=== PATIENT | male | born 1930 | race Caucasian/White ===

== ENCOUNTER 2016-11-24 10:41 | Emergency (ER) | payer OTHER ==
[~2016-11-24] VITALS: Ht 172.7 cm; Wt 65.8 kg
[2016-11-24 10:45] VITALS: BP 193/90; PULSE 60; RESP 18; TEMP 98.5; O2SAT 98
--- NOTE | 2016-11-24 10:45 | NUR ---
Arrived as walk in from home with compliant of back pain x 1 week, with associated chest pain. Both the chest pain and back pain are poorly described. Placed in room 8 . Placed on cardiac/vascular sonographer, blood pressure machine and pulse oximeter. To gown for exam. Side rails up. Report given to Cole GARCIA.
--- NOTE | 2016-11-24 10:50 | NUR ---
# 20 gauge angiocath placed to RAC. Use of asceptic technique. Opsite placed over site. Blood return noted. Blood for lab drawn from site. Flushed with 10 cc of normal saline. No evidence of infiltration noted. Patient tolerated well.
--- NOTE | 2016-11-24 10:50 | NUR ---
Pt report received from RADHA Rivera. Pt c/o back pain that radiates to his chest x 1 week, more severe over the past two days. No SOB, denies N/V or headache. VSS.
--- NOTE | 2016-11-24 11:00 | NUR ---
Dr. Pond at bedside to assess pt.
[2016-11-24] MEDS ORDERED: ONDANSETRON HCL 4 MG/2 ML VIAL IVP ONE (11:15)
[2016-11-24] MEDS ORDERED: MORPHINE 4 MG/ML INJ. SYRINGE IVP ONE (11:15)
[2016-11-24] MEDS ORDERED: MORPHINE 2 MG/ML INJ. SYRINGE ONE (11:20)
[2016-11-24 11:27] LABS: BASOPHILS # (AUTO) 0.1 K/uL (0.0-0.2); BASOPHILS % (AUTO) 0.6 % (0.0-2.0); EOSINOPHILS # (AUTO) 0.3 K/uL (0.0-0.4); EOSINOPHILS % (AUTO) 2.4 % (0.0-4.0); HEMATOCRIT 36.3 % (36-54); HEMOGLOBIN 11.9 g/dL (14.0-18.0); LYMPHOCYTES # (AUTO) 1.6 K/uL (1.0-5.5); LYMPHOCYTES % (AUTO) 11.8 % (20.5-51.5); MEAN CORPUSCULAR HEMOGLOBIN 26 pg (27-31); MEAN CORPUSCULAR HGB CONC 33 % (32-36); MEAN CORPUSCULAR VOLUME 80 fL (79.0-98.0); MONOCYTES # (AUTO) 1.3 K/uL (0.0-1.0); MONOCYTES % (AUTO) 9.7 % (1.7-9.3); NEUTROPHILS # (AUTO) 10.1 K/uL (1.8-7.7); NEUTROPHILS % (AUTO) 75.5 % (40.0-70.0); PLATELET COUNT (AUTO) 349 K/uL (130-430); RED BLOOD CELL COUNT(AUTO) 4.51 MIL/uL (4.2-6.2); RED CELL DISTRIBUTION WIDTH 14.7 % (9.0-15.0); WHITE BLOOD COUNT (AUTO) 13.4 K/uL (4.8-10.8)
[2016-11-24 11:39] LABS: ANION GAP 7 (5-15); CALCIUM 8.8 mg/dL (8.4-11.0); CHLORIDE 104 mmol/L (98-107); CREATININE 1.16 mg/dL (0.55-1.30); GLUCOSE 118 mg/dL (70-99); POTASSIUM 4.7 mmol/L (3.5-5.1); SODIUM SERUM 138 mmol/L (136-145); UREA NITROGEN, BLOOD 28 mg/dL (8-21)
[2016-11-24 11:43] LABS: ALBUMIN 3.3 g/dL (3.4-4.8); ASPARTATE AMINOTRANSFERASE 23 U/L (10-37); CHOLESTEROL 92 mg/dL (<200); HDL CHOLESTEROL 39 mg/dL (>45); LDL CHOLESTEROL 42 mg/dL (<100); TOTAL BILIRUBIN 0.6 mg/dL (0.0-1.0); TOTAL PROTEIN, SERUM 7.4 g/dL (6.4-8.3); TRIGLYCERIDES 108 mg/dL (30-150)
[2016-11-24 11:56] LABS: ALANINE AMINOTRANSFERASE 7 U/L (12-78)
--- NOTE | 2016-11-24 12:00 | NUR ---
Pt AAOx4, talking with family members. Pt denies c/o pain or discomfort at this time.
[2016-11-24 12:06] LABS: BILIRUBIN,URINE NEGATIVE (NEGATIVE); BLOOD, URINE NEGATIVE (NEGATIVE); CLARITY/URINE SL HAZY (CLEAR); COLOR,URINE YELLOW (YELLOW); GLUCOSE,URINE NEGATIVE (NEGATIVE); KETONES,URINE NEGATIVE (NEGATIVE); LEUKOCYTE ESTERASE ,URINE NEGATIVE (NEGATIVE); NITRITE, URINE NEGATIVE (NEGATIVE); PH,URINE 7.5 (5.0-8.0); PROTEIN URINE NEGATIVE (NEGATIVE); UROBILINOGEN,URINE 0.2 (0.2-1.0)
[2016-11-24] MEDS ORDERED: IOHEXOL 350 mgI/mL, 150 ML INFUS..BTL IV ONE (12:50)
[2016-11-24] MEDS ORDERED: DOXYCYCLINE HYCLATE 100 MG CAPSULE PO ONE (14:00)
--- NOTE | 2016-11-24 14:00 | NUR ---
Pt resting quietly, pt denies c/o pain or discomfort and no needs verbalized at this time.
[2016-11-24 16:00] VITALS: BP 136/71; PULSE 76; RESP 20; TEMP 98.1; O2SAT 97
--- NOTE | 2016-11-24 16:00 | NUR ---
Patient given written and verbal discharge instructions and verbalizes understanding. ER MD discussed with patient the results and treatment provided. Patient in stable condition. ID arm band removed. IV catheter removed intact and dressing applied, no active bleeding. Rx of Doxycycline given. Patient educated on pain management and to follow up with PMD. Pain Scale 0/10. Opportunity for questions provided and answered. Pt discharged to home with close follow up. Pt.'s daughter is the [employer] administrator at the assisted living in which the pt resides. Pt also has an appointment with his PMD tomorrow.
== END 2016-11-24 16:00 | disposition home or self-care (01) ==
LOC: SED 10:41
DX: M54.6 Pain in thoracic spine (principal); J18.1 Lobar pneumonia, unspecified organism; I10 Essential (primary) hypertension
CPT/HCPCS: 36415; 71010; 71275; 80053; 80061; 81003; 83605; 83880; 84484; 85025; 85379; 87040; 93005; 96374; 96375; 99285; J2270; J2405; Q9967; J7030

== ENCOUNTER 2017-01-01 11:39 | Inpatient (IN) | payer OTHER ==
[~2017-01-01] VITALS: Ht 165.1 cm; Wt 63.5 kg
[2017-01-01 11:39] VITALS: BP 133/57; PULSE 66; RESP 16; TEMP 97.9; O2SAT 99
--- NOTE | 2017-01-01 11:39 | NUR ---
Patient to ER bed 3 to gown for evaluation. Side rails up. Report given to anant steward.
--- NOTE | 2017-01-01 11:42 | NUR ---
ER at bedside examining patient.
--- NOTE | 2017-01-01 11:47 | NUR ---
# 20 gauge angiocath placed to R AC. Use of asceptic technique. Opsite placed over site. Blood return noted. Blood for lab drawn from site. Flushed with 10 cc of normal saline. No evidence of infiltration noted. Patient tolerated well.
[2017-01-01 11:58] LABS: BASOPHILS % (AUTO) 0.2 % (0.0-2.0); EOSINOPHILS # (AUTO) 0.4 K/uL (0.0-0.4); EOSINOPHILS % (AUTO) 2.5 % (0.0-4.0); HEMATOCRIT 26.5 % (36-54); HEMOGLOBIN 8.2 g/dL (14.0-18.0); LYMPHOCYTES # (AUTO) 1.6 K/uL (1.0-5.5); LYMPHOCYTES % (AUTO) 10.6 % (20.5-51.5); MEAN CORPUSCULAR HEMOGLOBIN 25 pg (27-31); MEAN CORPUSCULAR HGB CONC 31 % (32-36); MEAN CORPUSCULAR VOLUME 81 fL (79.0-98.0); MONOCYTES # (AUTO) 1.4 K/uL (0.0-1.0); MONOCYTES % (AUTO) 8.7 % (1.7-9.3); NEUTROPHILS # (AUTO) 12.1 K/uL (1.8-7.7); RED BLOOD CELL COUNT(AUTO) 3.29 MIL/uL (4.2-6.2); RED CELL DISTRIBUTION WIDTH 15.3 % (9.0-15.0); WHITE BLOOD COUNT (AUTO) 15.5 K/uL (4.8-10.8)
[2017-01-01 12:17] LABS: ANION GAP 9 (5-15); CALCIUM 8.5 mg/dL (8.4-11.0); CHLORIDE 99 mmol/L (98-107); GLUCOSE 109 mg/dL (70-99); POTASSIUM 4.3 mmol/L (3.5-5.1); SODIUM SERUM 133 mmol/L (136-145); UREA NITROGEN, BLOOD 33 mg/dL (8-21)
[2017-01-01 12:21] LABS: ALANINE AMINOTRANSFERASE 20 U/L (12-78); ALBUMIN 2.8 g/dL (3.4-4.8); ASPARTATE AMINOTRANSFERASE 35 U/L (10-37); LIPASE 153 U/L (73-393); TOTAL BILIRUBIN 0.5 mg/dL (0.0-1.0); TOTAL PROTEIN, SERUM 6.8 g/dL (6.4-8.3)
[2017-01-01 12:33] LABS: PLATELET COUNT (AUTO) 542 K/uL (130-430)
--- NOTE | 2017-01-01 12:43 | NUR ---
PATIENT EXPERIENCING SOB, LUNG SOUNDS ARE CLEAR UPON AUSCULTATION. SUPPLEMETAL O2 VIA N/C TOLERATING WELL.
[2017-01-01] MEDS ORDERED: NACL 0.9% 1,000 ML IV ONE (12:45)
[2017-01-01] MEDS ORDERED: BISA5TAB10 PO (13:06)
[2017-01-01] MEDS ORDERED: CARB-62 PO (13:06)
[2017-01-01] MEDS ORDERED: CHOL100028 PO (13:06)
[2017-01-01] MEDS ORDERED: CLOP75TA2 PO (13:06)
[2017-01-01] MEDS ORDERED: IPRA4AER INH (13:06)
[2017-01-01] MEDS ORDERED: LIP40 PO (13:06)
[2017-01-01] MEDS ORDERED: POLY17PO4 PO (13:06)
[2017-01-01] MEDS ORDERED: PROC25SU RC (13:06)
[2017-01-01] MEDS ORDERED: PSYL3.4P6 PO (13:06)
[2017-01-01] MEDS ORDERED: SENN-67 PO (13:06)
[2017-01-01] MEDS ORDERED: fluticasone nasal NS (13:06)
[2017-01-01] MEDS ORDERED: OMEG500C3 PO (13:06)
[2017-01-01] MEDS ORDERED: [UNRECOGNIZED DRUG - CODE] PO (13:06)
[2017-01-01] MEDS ORDERED: TYLR650 RC (13:06)
[2017-01-01] MEDS ORDERED: HYOS0.1275 PO (13:06)
[2017-01-01] MEDS ORDERED: MORP10SO PO (13:06)
[2017-01-01] MEDS ORDERED: LEVO75TA7 PO (13:06)
[2017-01-01] MEDS ORDERED: ATEN-41 PO (13:06)
[2017-01-01] MEDS ORDERED: ISOS30TA6 PO (13:06)
[2017-01-01] MEDS ORDERED: MAG-86 PO (13:06)
[2017-01-01] MEDS ORDERED: HYDR-1189 PO (13:06)
[2017-01-01] MEDS ORDERED: BISA10SU77 RC (13:06)
[2017-01-01] MEDS ORDERED: ASPI-1063 PO (13:06)
[2017-01-01] MEDS ORDERED: TEMA15CA51 PO (13:06)
[2017-01-01] MEDS ORDERED: PRO40 PO (13:06)
[2017-01-01] MEDS ORDERED: NITSL SL (13:06)
[2017-01-01] MEDS ORDERED: LORA1TAB PO (13:06)
[2017-01-01] MEDS ORDERED: MINTOX PO (13:06)
[2017-01-01] MEDS ORDERED: ALLO100T PO (13:06)
[2017-01-01] MEDS ORDERED: IBUP-1479 PO (13:06)
[2017-01-01] MEDS ORDERED: GLUC-160 PO (13:06)
--- NOTE | 2017-01-01 13:06 | NUR ---
Medication reconciliation completed with information provided by juli. Any prior medication reconciliation on file was reviewed and corrected.
--- NOTE | 2017-01-01 13:21 | NUR ---
ADMISSION NOTE Received patient from ER via gurney. Patient admitted with diagnosis of GI Bleed. Patient is awake, alert, oriented X 3. Patient oriented to hospital room, call light, toileting, pain management and safety-teach back done. Patient informed that Fabricio will be his nurse and that their room number is 130 A. Personal belongings checked and Belongings List documented. Call light within reach.
--- NOTE | 2017-01-01 13:23 | NUR ---
Patient will be admitted to care of ASHWINI. Admitted to unit. Will go to room . Belongings list completed. Summary report printed. Report given to .
[2017-01-01 13:24] VITALS: BP 148/71; PULSE 70; RESP 17; TEMP 99.1; O2SAT 100
[2017-01-01] MEDS ORDERED: TEMAZEPAM 15 MG CAPSULE PO PRN (14:00)
[2017-01-01] MEDS ORDERED: ACETAMINOPHEN 325 MG TABLET PO PRN (14:00)
[2017-01-01] MEDS ORDERED: ACETAMINOPHEN 650 MG SUPP.RECT RC PRN (14:00)
[2017-01-01] MEDS ORDERED: NITROGLYCERIN 0.4 MG TAB.SUBL SL PRN (14:00)
[2017-01-01] MEDS ORDERED: BISACODYL 10 MG/SUPPOSITORY RC PRN (14:00)
[2017-01-01] MEDS ORDERED: PROCHLORPERAZINE MALEATE 25 MG/SUPP.RECT EA RC PRN (14:00)
[2017-01-01] MEDS ORDERED: LORazepam 1 MG TABLET PO PRN (14:00)
[2017-01-01] MEDS ORDERED: HYOSCYAMINE SULFATE 0.125 MG TABLET PO PRN (14:00)
--- NOTE | 2017-01-01 14:08 | NUR ---
CONSULT GI GI BLEED DR DIAZ [phone] S/W [facility] OFFICE @ 0863
[2017-01-01 14:14] LABS: HEMATOCRIT 24.7 % (36-54); HEMOGLOBIN 7.9 g/dL (14.0-18.0)
--- NOTE | 2017-01-01 15:09 | NUR ---
RN ROUNDS PATIENT RESTING IN BED FAMILY AT THE BEDSIDE, PATIENT ASKING FOR ASSISTANCE WITH URINAL, ASSISTED THE PATIENT TO STAND AND USE THE URINAL, PATIENT IS UNSTEADY WITHOUT ASSISTANCE, RETURNED PATIENT TO BED, GAVE NEW SOCKS AND WARM BLANKET, REINFORCED IV SITE DRESSING AT THIS TIME, IV FLUIDS INFUSING WELL, IV SITE IS PATENT WITH NO SIGNS OF INFILTRATION AT THIS TIME, BED IN LOWEST POSITION, THREE SIDE RAILS UP, BED ALARM ON, FALL PRECAUTIONS IN PLACE, CALL LIGHT PLACED NEXT TO THE PATIENT'S HAND.
[2017-01-01 16:00] VITALS: BP 125/54; PULSE 69; RESP 20; TEMP 98.1; O2SAT 99
--- NOTE | 2017-01-01 17:35 | NUR ---
RN ROUND patient resting in bed, family members at bedside, instructed patient to use call salcido if assistance is needed, patient verbalized understanding, bed in lowest position, two side rails up, bed alarm on, fall precautions in place, will continue to monitor
[2017-01-01] MEDS: CARBIDOPA/LEVODOPA 25/250 MG TABLET PO SCH ×2 (18:02→21:38)
[2017-01-01] MEDS: MORPHINE 2 MG/ML INJ. SYRINGE IVP PRN (18:03)
--- NOTE | 2017-01-01 18:47 | NUR ---
Closing Note Patient is in stable condition,family members at bedside, all needs met, will endorse report to NOC shift nurse, bed in lowest position, two side rails up, fall precautions in place.
--- NOTE | 2017-01-01 19:30 | NUR ---
PM ASSESSMENT PT. A/OX4, VITAL SIGNS STABLE, NO DISTRESS NOTED, DENIES PAIN, FAMILY AT BEDSIDE UPDATED WITH PLAN OF CARE, ENCOURAGED PT. TO USE CALL LIGHT FOR ASSISTANCE, CALL LIGHT WITHIN REACH, WILL CONTINUE TO MONITOR.
--- NOTE | 2017-01-01 19:40 | NUR ---
pm assessment: pt. awake, alert, answers all questions appropriately. speech clear. denies pain. assisted up to bathroom to void and back to bed. no sob noted. family present at bedside. call light within reach. bed in low position.
[2017-01-01 20:25] VITALS: BP 122/56; PULSE 64; RESP 16; TEMP 98.3; O2SAT 100
[2017-01-01 21:09] LABS: HEMATOCRIT 23.6 % (36-54); HEMOGLOBIN 7.6 g/dL (14.0-18.0)
[2017-01-01] MEDS: PANTOPRAZOLE SODIUM 40 MG/VIAL (PROTONIX) IVP SCH (21:35)
[2017-01-01] MEDS: HYDROcodone/ACETAMIN 5-325 MG TAB (NORCO/ VICODIN) PO SCH (21:38)
[2017-01-01] MEDS: ATENOLOL 25 MG TABLET(TENORMIN) PO SCH (21:41)
[2017-01-01] MEDS: BISACODYL 5 MG TABLET.DR (DULCOLAX) PO SCH (21:43)
--- NOTE | 2017-01-01 22:01 | NUR ---
CONSULT: CONSULT CALLED FOR DR. DIAZ I SPOKE WITH ILEANA GARCIA CUSTOMER SUCCESS REPRESENTATIVE CLAUDIO REASON FOR CONSULT: GI BLEED NUMBER I CALLED [phone]
--- NOTE | 2017-01-01 22:22 | NUR ---
DR. DIANA ORTIZ CALLED, MADE AWARE OF CURRENT H/H 7.6/23.6, RECEIVED ORDER TO KEEP PT. NPO, NO FURTHER ORDERS AT THIS TIME.
[2017-01-01 23:23] LABS: IRON (SERUM) 18 mcg/dL (59-158); TOTAL IRON BIND. CAPACITY 195 ug/dL (250-450)
--- NOTE | 2017-01-02 | NUR ---
RN ROUNDS PT. RESTING QUIETLY, VITAL SIGNS STABLE, NO DISTRESS NOTED, DENIES PAIN, CALL LIGHT WITHIN REACH, WILL CONTINUE TO MONITOR.
[2017-01-02 01:28] VITALS: BP 93/41; PULSE 61; RESP 18; TEMP 98.2; O2SAT 99
--- NOTE | 2017-01-02 02:00 | NUR ---
RN ROUNDS PT. RESTING QUIETLY, VITAL SIGNS STABLE, NO DISTRESS NOTED, DENIES PAIN, CALL LIGHT WITHIN REACH, WILL CONTINUE TO MONITOR.
[2017-01-02 02:54] LABS: HEMATOCRIT 22.3 % (36-54)
--- NOTE | 2017-01-02 03:15 | NUR ---
SHORT OF BREATH PT. C/O SHORTNESS OF BREATH, O2 SAT. 78% ON ROOM AIR, PT. PLACED ON O2 5L, ENCOURAGED DEEP BREATHING, O2 SAT. IS NOW 99%, VITAL SIGNS STABLE, PT. SINUS RHYTHM WITH HEART RATE 62, WILL CONTINUE TO MONITOR.
[2017-01-02 04:56] VITALS: BP 123/51; PULSE 67; RESP 16; TEMP 98; O2SAT 100
[2017-01-02] MEDS: LEVOTHYROXINE SODIUM 0.075 MG TABLET PO SCH (06:00)
--- NOTE | 2017-01-02 06:40 | NUR ---
Closing note: Patient more restful. HOB elevated. Last vs 147/69, hr 63/ sat 97% on 5L/NC. Patient kept NPO. CBC and H&H drawn this AM. Call light in reach. Bed in low position. No distress noted.
[2017-01-02 06:41] LABS: BASOPHILS % (AUTO) 0.1 % (0.0-2.0); EOSINOPHILS # (AUTO) 0.3 K/uL (0.0-0.4); EOSINOPHILS % (AUTO) 2.2 % (0.0-4.0); HEMATOCRIT 25.2 % (36-54); HEMOGLOBIN 7.8 g/dL (14.0-18.0); LYMPHOCYTES # (AUTO) 1.2 K/uL (1.0-5.5); LYMPHOCYTES % (AUTO) 9.4 % (20.5-51.5); MEAN CORPUSCULAR HEMOGLOBIN 25 pg (27-31); MEAN CORPUSCULAR HGB CONC 31 % (32-36); MEAN CORPUSCULAR VOLUME 80 fL (79.0-98.0); MONOCYTES # (AUTO) 1.4 K/uL (0.0-1.0); MONOCYTES % (AUTO) 10.9 % (1.7-9.3); NEUTROPHILS # (AUTO) 10.2 K/uL (1.8-7.7); NEUTROPHILS % (AUTO) 77.4 % (40.0-70.0); PLATELET COUNT (AUTO) 537 K/uL (130-430); RED BLOOD CELL COUNT(AUTO) 3.17 MIL/uL (4.2-6.2); RED CELL DISTRIBUTION WIDTH 15.3 % (9.0-15.0); WHITE BLOOD COUNT (AUTO) 13.1 K/uL (4.8-10.8)
--- NOTE | 2017-01-02 07:30 | NUR ---
AM Rounds: Received pt sitting semi-fowlers in bed. No acute signs of distress noted at this time. Pt breathing even and unlabored on oxygen. No SOB noted at this time. Pt denies chest pain at this time. Pt is able to make needs known and verbalizes understanding of need to call for assist prior to ambulating. Call light in reach. Continue to monitor.
[2017-01-02 08:38] VITALS: BP 148/57; PULSE 67; RESP 16; TEMP 96.8; O2SAT 100
[2017-01-02] MEDS: HYDROcodone/ACETAMIN 5-325 MG TAB (NORCO/ VICODIN) PO SCH ×2 (09:00→21:00)
[2017-01-02] MEDS ORDERED: PANTOPRAZOLE SODIUM 40 MG TAB PO SCH (09:00)
[2017-01-02] MEDS: CARBIDOPA/LEVODOPA 25/250 MG TABLET PO SCH ×4 (09:08→21:02)
[2017-01-02] MEDS: CHOLECALCIFEROL (VITAMIN D3) 2,000 UNIT TABLET PO SCH (09:08)
[2017-01-02] MEDS: BISACODYL 5 MG TABLET.DR (DULCOLAX) PO SCH ×2 (09:08→21:01)
[2017-01-02] MEDS: ATORVASTATIN 20 MG TABLET PO SCH (09:08)
[2017-01-02] MEDS: POLYETHYLENE GLYCOL 3350, 17 GM/ POWD.PACK PO SCH (09:09)
[2017-01-02] MEDS: ISOSORBIDE MONONITRATE 30 MG TAB.ER.24H PO SCH (09:09)
[2017-01-02] MEDS: PANTOPRAZOLE SODIUM 40 MG/VIAL (PROTONIX) IVP SCH ×2 (09:09→21:03)
--- NOTE | 2017-01-02 09:46 | NUR ---
RN Rounds: AM meds given per MD order. No acute signs of distress noted. Pt tolerates well. Dr. Borja here new orders noted. Call light in reach. Continue to monitor.
[2017-01-02 10:08] LABS: ANION GAP 5 (5-15); CHLORIDE 105 mmol/L (98-107); CREATININE 1.36 mg/dL (0.55-1.30); GLUCOSE 84 mg/dL (70-99); POTASSIUM 4.3 mmol/L (3.5-5.1); SODIUM SERUM 136 mmol/L (136-145); UREA NITROGEN, BLOOD 30 mg/dL (8-21)
[2017-01-02 10:23] LABS: ALANINE AMINOTRANSFERASE 13 U/L (12-78); ALBUMIN 2.4 g/dL (3.4-4.8); ASPARTATE AMINOTRANSFERASE 36 U/L (10-37); BILIRUBIN,DIRECT 0.1 mg/dL (0.0-0.3); TOTAL BILIRUBIN 0.5 mg/dL (0.0-1.0); TOTAL PROTEIN, SERUM 5.9 g/dL (6.4-8.3)
--- NOTE | 2017-01-02 11:14 | NUR ---
Rounds: Pt sitting semi-fowlers in bed. No acute signs of distress noted at this time. IV intact. Pt denies chest pain and SOB. Call light in reach. and niece at bedside. Pt tolerates clear liquids at this time. Continue to monitor.
[2017-01-02 12:45] VITALS: BP 92/46; PULSE 60; RESP 17; TEMP 97.8; O2SAT 92
--- NOTE | 2017-01-02 13:49 | NUR ---
Rounds: Pt sitting semi-fowlers in bed. No acute signs of distress noted. IV intact LUE with no redness or swelling noted to site. Pt denies chest pain. Call light in reach. Continue to monitor.
[2017-01-02] MEDS ORDERED: DIATR MEGLU/DIATRIZ SOD 30 ML SOLUTION PO ONE (14:07)
[2017-01-02 14:22] LABS: HEMOGLOBIN 7.3 g/dL (14.0-18.0)
[2017-01-02 14:25] LABS: HEMATOCRIT 23.2 % (36-54)
--- NOTE | 2017-01-02 15:35 | NUR ---
Rounds: Pt sitting semi-fowlers in bed. No acute signs of distress noted. IV intact to LUE. Patient denies dizziness and chest pain at this time. Call light in reach. Fall precautions in place. Continue to monitor.
[2017-01-02 16:21] VITALS: BP 85/44; PULSE 61; RESP 18; TEMP 98.1; O2SAT 95
[2017-01-02] MEDS ORDERED: BISACODYL 5 MG TABLET.DR (DULCOLAX) PO ONE (17:00)
--- NOTE | 2017-01-02 17:16 | NUR ---
Rounds: Pt sitting semi-fowlers in bed. No acute signs of distress noted. Patient educated on need to finish bowel prep and that stool should be clear. Bedside commode at bedside. No other needs noted at this time. Call light in reach. Patient is able to call for assist prior to ambulating. Continue to monitor.
[2017-01-02] MEDS ORDERED: GOLYTELY / COLYTE SOLUTION 4 LITERS PO ONE (18:00)
[2017-01-02] MEDS ORDERED: ONDANSETRON HCL 4 MG/2 ML VIAL IVP PRN (18:45)
--- NOTE | 2017-01-02 18:56 | NUR ---
Closing Note: Pt drinking bowel prep at this time. Denies chest pain and SOB. Call light in reach. No other needs noted at this time. Fall precautions in place. Pt pulled up and repositioned in bed. Bed alarm on. Endorse plan of care to AGUSTO RN.
--- NOTE | 2017-01-02 19:40 | NUR ---
PM assessment: Alert/oriented sitting up on bedside. Answers questions appropriately. Taking Go-Lytely with fair tolerance. Denies nausea. Call light within reach. Encouraged to use call light when going to restroom. Patient verbalized understanding. Bed in low position.
[2017-01-02 20:07] LABS: HEMOGLOBIN 8.2 g/dL (14.0-18.0)
[2017-01-02 20:17] VITALS: BP 140/80; RESP 16; TEMP 97.6; O2SAT 97
[2017-01-02] MEDS: ATENOLOL 25 MG TABLET(TENORMIN) PO SCH (21:02)
[2017-01-03] VITALS (7 sets, daily range): BP systolic 97–148; BP diastolic 41–68; PULSE 61–70; RESP 16–19; TEMP 97.6–98.3; O2SAT 94–100
[2017-01-03 03:15] LABS: HEMATOCRIT 22.1 % (36-54)
[2017-01-03 03:25] LABS: HEMOGLOBIN 7.1 g/dL (14.0-18.0)
--- NOTE | 2017-01-03 04:03 | NUR ---
Rounds: Patient continues to take Go-lytely with fair tolerance. Patient having moderate amts. of loose greenish liquid stool when in bathroom. Encouraged to use call light for assist.
[2017-01-03] MEDS: LEVOTHYROXINE SODIUM 0.075 MG TABLET PO SCH (06:00)
[2017-01-03 06:24] LABS: INR 1.1 (0.80-1.20); PROTHROMBIN TIME 11.6 SECS (9.5-12.5)
--- NOTE | 2017-01-03 06:31 | NUR ---
Closing note: Patient awake Tap H20 enema given. Patient tolerated enema fair. Good results mainly clear but small flecks of greenish stool present. Patient instructed to use call light for assist if needs assist to bedside commode. Patient verbalized understanding of instruction.
--- NOTE | 2017-01-03 07:40 | NUR ---
Patient off [place]: Patient off [place] to GI lab. Pt is medically stable at this time. Iv intact.
[2017-01-03] MEDS ORDERED: MEPERIDINE HCL/PF 100 MG/ML AMP ONE (07:50)
[2017-01-03] MEDS ORDERED: MIDAZOLAM HCL 5 MG/5 ML VIAL ONE (07:50)
[2017-01-03] MEDS ORDERED: SIMETHICONE 40 MG/0.6 ML ML ONE (07:50)
[2017-01-03 08:08] LABS: HEMATOCRIT 25.1 % (36-54)
[2017-01-03] MEDS ORDERED: MEPERIDINE HCL/PF 100 MG/ML AMP IV ONE ×2 (08:22→08:26)
[2017-01-03] MEDS ORDERED: MIDAZOLAM HCL 5 MG/5 ML VIAL IVP ONE ×2 (08:24→08:28)
[2017-01-03] MEDS: BISACODYL 5 MG TABLET.DR (DULCOLAX) PO SCH ×2 (08:57→21:00)
[2017-01-03] MEDS: ATORVASTATIN 20 MG TABLET PO SCH (08:57)
[2017-01-03] MEDS: ISOSORBIDE MONONITRATE 30 MG TAB.ER.24H PO SCH (08:57)
[2017-01-03] MEDS: CARBIDOPA/LEVODOPA 25/250 MG TABLET PO SCH ×4 (08:57→21:21)
[2017-01-03] MEDS: CHOLECALCIFEROL (VITAMIN D3) 2,000 UNIT TABLET PO SCH (08:57)
[2017-01-03] MEDS: PANTOPRAZOLE SODIUM 40 MG/VIAL (PROTONIX) IVP SCH ×2 (08:57→21:20)
[2017-01-03] MEDS: POLYETHYLENE GLYCOL 3350, 17 GM/ POWD.PACK PO SCH (08:57)
[2017-01-03] MEDS: HYDROcodone/ACETAMIN 5-325 MG TAB (NORCO/ VICODIN) PO SCH ×2 (08:57→21:21)
--- NOTE | 2017-01-03 09:40 | NUR ---
Patient Return to [place]: Pt return to [place] from GI lab. No acute signs of distress noted. Iv intact to RUE. Call light in reach. Continue to monitor.
--- NOTE | 2017-01-03 11:45 | NUR ---
Rounds/Dr. Charles Here: Pt sitting up in bed, awake and alert. No acute signs of distress noted at this time. IV intact at this time. Call light in reach. No SOB noted. Dr. Charles here to speak with family.
--- NOTE | 2017-01-03 13:06 | NUR ---
2nd page for GI Jerome MERLOS/Jonh to resume colonoscopy procedure IN AM.
--- NOTE | 2017-01-03 13:10 | NUR ---
Rounds: Pt sitting up in bed. No acute signs of distress noted. Call light in reach. Fall precautions in place. Bed alarm on. Continue to monitor.
[2017-01-03 13:51] LABS: HEMOGLOBIN 7.3 g/dL (14.0-18.0)
[2017-01-03] MEDS ORDERED: BISACODYL 5 MG TABLET.DR (DULCOLAX) PO ONE (15:00)
--- NOTE | 2017-01-03 15:15 | NUR ---
Spoke with Dr. Borja: Spoke with Dr. Borja. He is aware that patient's family want to go through with colonoscopy after family spoke with Dr. Charles. Dr. Borja aware that bowel prep has been previously ordered by Dr. Cano. Copy of order given to cupola melting supervisor.
[2017-01-03] MEDS ORDERED: GOLYTELY / COLYTE SOLUTION 4 LITERS PO ONE (16:00)
--- NOTE | 2017-01-03 17:02 | NUR ---
Rounds: Pt sitting semi-fowlers in bed and drinking bowel prep at this time. No acute signs of distress noted. Patient denies nausea. Call light in reach. Continue to monitor pt closely.
--- NOTE | 2017-01-03 18:34 | NUR ---
Closing Note: Pt sitting semi-fowlers in bed. No acute signs of distress noted. IV intact. Pt verbalizes understanding of need to finish bowel prep for colonoscopy tomorrow. Endorse plan of care and NPO at midnoc to NOC RN. No other needs noted. Bed alarm on, Side rails x3, bed in lowest position. Call in reach. Continue to monitor.
[2017-01-03 19:56] LABS: HEMATOCRIT 21.9 % (36-54); HEMOGLOBIN 6.8 g/dL (14.0-18.0)
--- NOTE | 2017-01-03 20:00 | NUR ---
Initial note A/O x 3, no SOB, no chest pain, but c/o lower back pain. Skin warm to touch, IV #20 at R hand, patent, free of infiltration or infection. Clear lungs sounds and active bowel sounds. +2 Redial and pedal pulses without edema. Bed alarm in use. Patient's aware to use call light for BSC use. Noted bleeding in the BSC, HgB and Hct were drawn around 1945, patient denied dizzy or palpitation, awaiting for lab result at this time. Call light within reach, will continue to monitor patient.
--- NOTE | 2017-01-03 21:20 | NUR ---
MD call Reported to Dr. Cook (oracle ebs consultant) for low Hgb (6.8) and bloody urine, Dr. Cook ordered 2 units of PRBC.
[2017-01-03] MEDS: ATENOLOL 25 MG TABLET(TENORMIN) PO SCH (21:22)
--- NOTE | 2017-01-03 21:30 | NUR ---
Call niece (Hermila) for consent Patient is aware the blood transfusion order, but he requested to get the consent from his niece (Hermila). Spoke to Hermila and explained about the situation, Hermila gave the consent for transfusion.
--- NOTE | 2017-01-03 22:00 | NUR ---
Round A/O x 3, no SOB, no chest pain, but c/o lower back pain. Skin warm to touch, IV #20 at R hand, patent, free of infiltration or infection. Clear lungs sounds and active bowel sounds. Patient resting in bed. Risk for fall, bed alarm in use. Patient's aware to use call light for BSC use or other concern. Patient denied dizzy or palpitation. Call light within reach, will continue to monitor patient.
--- NOTE | 2017-01-04 | NUR ---
Round A/O x 3, no SOB, no chest pain, but c/o lower back pain. Skin warm to touch, IV #20 at R hand, patent, free of infiltration or infection. Clear lungs sounds and active bowel sounds. Patient is sleeping. Bed alarm in use. Patient's aware to use call light for BSC use or other concern. Call light within reach, will continue to monitor patient.
--- NOTE | 2017-01-04 00:36 | NUR ---
IV insertion Started one IV #20 at L FA for blood transfusion, good blood return, free of infiltration, patient tolerated well.
[2017-01-04 00:47] VITALS: BP 131/57; PULSE 68; RESP 17; TEMP 97.6; O2SAT 95
--- NOTE | 2017-01-04 01:00 | NUR ---
BT INITIATION: Consent signed. agreeing to administration of blood. Blood has been type and crossmatched. Blood sent from blood bank. Information on unit of blood checked against patient wristband at bedside by two nurses. All information matches. Patient or responsible democrat informed of potential complications associated with blood transfusion. Informed of possible transfusion reaction symptoms. Aware of need to notify nurse at once of itching, shortness of breath, flushing, feeling of impending doom, or other symptoms not previously present. Vital signs taken within 5 minutes prior to initiation of transfusion. RN will remain with patient for first 15 minutes of transfusion at which time vital signs will be re-assessed.
--- NOTE | 2017-01-04 01:15 | NUR ---
BT recheck VS recheck, patient no distress, no s/s of blood transfusion reactions. Call light within reach, will continue to monitor patient.
--- NOTE | 2017-01-04 04:00 | NUR ---
Round and completion of first BT A/O x 3, no SOB, no chest pain, resting in bed. Skin warm to touch, IV #20 at R hand, and IV # 20 at L FA, both are patent, free of infiltration or infection. Clear lungs sounds and active bowel sounds. Blood transfusion completed at 0400, no s/s of blood transfusion reactions, VS stable. Bed alarm in use. Patient's aware to use call light for BSC use or other concern. Call light within reach, will continue to monitor patient.
--- NOTE | 2017-01-04 04:20 | NUR ---
2nd PRBC started VS stables, informed patient to notify nurse for any itching or s/s of blood transfusion reactions. Nurse stayed with patient for the first 15 minutes. Unit verified with another nurse, all information matches.
--- NOTE | 2017-01-04 04:35 | NUR ---
BT recheck VS stable, no s/s of blood transfusion reactions. Instructed patient to call nurse for any reactions from blood transfusion. Call light within reach, will continue to monitor patient.
[2017-01-04 04:44] VITALS: BP 128/63; PULSE 72; RESP 17; TEMP 98; O2SAT 97
[2017-01-04] MEDS: LEVOTHYROXINE SODIUM 0.075 MG TABLET PO SCH (06:00)
--- NOTE | 2017-01-04 06:00 | NUR ---
Closing note A/O x 3, no SOB, no chest pain, resting in bed. Skin warm to touch, IV #20 at R hand, and IV # 20 at L FA, both are patent, free of infiltration or infection. Clear lungs sounds and active bowel sounds. Blood transfusion ongoing, no s/s of blood transfusion reactions. Bed alarm in use. Patient's aware to use call light for BSC use or other concern. Call light within reach, will continue to monitor patient.
--- NOTE | 2017-01-04 07:20 | NUR ---
initial rounds: pt on bed awake, alert and oriented. had a bowel movement and still bleeding. discussed plan of care. report received at bedside.
[2017-01-04 08:00] VITALS: BP 159/60; PULSE 66; RESP 16; TEMP 98.4; O2SAT 99
[2017-01-04] MEDS: BISACODYL 5 MG TABLET.DR (DULCOLAX) PO SCH ×2 (09:00→22:35)
[2017-01-04] MEDS: POLYETHYLENE GLYCOL 3350, 17 GM/ POWD.PACK PO SCH (09:00)
[2017-01-04] MEDS: CARBIDOPA/LEVODOPA 25/250 MG TABLET PO SCH ×3 (09:00→17:00)
[2017-01-04] MEDS: HYDROcodone/ACETAMIN 5-325 MG TAB (NORCO/ VICODIN) PO SCH ×2 (09:00→22:34)
[2017-01-04] MEDS: CHOLECALCIFEROL (VITAMIN D3) 2,000 UNIT TABLET PO SCH (09:00)
[2017-01-04] MEDS: MORPHINE 4 MG/ML INJ. SYRINGE IVP PRN (09:04)
[2017-01-04] MEDS: PANTOPRAZOLE SODIUM 40 MG/VIAL (PROTONIX) IVP SCH ×2 (09:10→22:34)
[2017-01-04 10:22] LABS: BASOPHILS % (AUTO) 0.3 % (0.0-2.0); EOSINOPHILS # (AUTO) 0.1 K/uL (0.0-0.4); EOSINOPHILS % (AUTO) 0.6 % (0.0-4.0); HEMATOCRIT 29.4 % (36-54); HEMOGLOBIN 9.4 g/dL (14.0-18.0); LYMPHOCYTES # (AUTO) 1.3 K/uL (1.0-5.5); LYMPHOCYTES % (AUTO) 8.9 % (20.5-51.5); MEAN CORPUSCULAR HEMOGLOBIN 26 pg (27-31); MEAN CORPUSCULAR HGB CONC 32 % (32-36); MEAN CORPUSCULAR VOLUME 83 fL (79.0-98.0); MONOCYTES # (AUTO) 1.1 K/uL (0.0-1.0); MONOCYTES % (AUTO) 7.4 % (1.7-9.3); NEUTROPHILS # (AUTO) 11.8 K/uL (1.8-7.7); NEUTROPHILS % (AUTO) 82.8 % (40.0-70.0); PLATELET COUNT (AUTO) 422 K/uL (130-430); RED BLOOD CELL COUNT(AUTO) 3.55 MIL/uL (4.2-6.2); RED CELL DISTRIBUTION WIDTH 16.1 % (9.0-15.0); WHITE BLOOD COUNT (AUTO) 14.3 K/uL (4.8-10.8)
[2017-01-04 10:23] LABS: ANION GAP 6 (5-15); CALCIUM 7.9 mg/dL (8.4-11.0); CHLORIDE 105 mmol/L (98-107); CREATININE 1.27 mg/dL (0.55-1.30); GLUCOSE 95 mg/dL (70-99); POTASSIUM 3.3 mmol/L (3.5-5.1); SODIUM SERUM 138 mmol/L (136-145); UREA NITROGEN, BLOOD 26 mg/dL (8-21)
--- NOTE | 2017-01-04 12:12 | NUR ---
Telephone order: Paged [facility] to follow up colonoscopy. Dr. Grewal is the insurance consultant and called back said no more colonoscopy for the pt today as per Dr. Cano. Resume clear liquid diet.
--- NOTE | 2017-01-04 12:30 | NUR ---
Colonoscopy: charged nursed informed Colonoscopy will be at 14:30. withheld food. pt continues on NPO.
[2017-01-04 12:31] VITALS: BP 155/64; PULSE 69; RESP 17; TEMP 97.9; O2SAT 97
[2017-01-04] MEDS: KCL 20 mEq in 0.45% NS 1000 mL 1,000 ML IV SCH (12:54)
--- NOTE | 2017-01-04 14:18 | NUR ---
Patient assist to and from bed. Alarm reset.
--- NOTE | 2017-01-04 14:30 | NUR ---
g . i. lab: pt wheeled to g[facility]. lab for colonoscopy.
[2017-01-04] MEDS ORDERED: MIDAZOLAM HCL 5 MG/5 ML VIAL ONE (14:42)
[2017-01-04] MEDS ORDERED: fentaNYL CITRATE/PF 100 MCG/2 ML AMP ONE (14:42)
[2017-01-04] MEDS ORDERED: SIMETHICONE 40 MG/0.6 ML ML ONE (14:43)
[2017-01-04] MEDS ORDERED: fentaNYL CITRATE/PF 100 MCG/2 ML AMP IVP ONE (15:16)
[2017-01-04] MEDS ORDERED: MIDAZOLAM HCL 5 MG/5 ML VIAL IVP ONE (15:18)
[2017-01-04 16:30] VITALS: BP 158/68; PULSE 73; RESP 17; TEMP 99; O2SAT 97
--- NOTE | 2017-01-04 16:30 | NUR ---
rounds: pt back on his room with family at bedside. report received from gi nurse. DX: Diverticulitis bleeding. no biopsy needed.
[2017-01-04] MEDS: ATORVASTATIN 20 MG TABLET PO SCH (17:41)
[2017-01-04] MEDS: MORPHINE 2 MG/ML INJ. SYRINGE IVP PRN (17:42)
[2017-01-04] MEDS: ISOSORBIDE MONONITRATE 30 MG TAB.ER.24H PO SCH (17:42)
--- NOTE | 2017-01-04 18:00 | NUR ---
rounds: pt on bed sleeping. no distress noted.
--- NOTE | 2017-01-04 19:30 | NUR ---
initial nursing notes: Patient is awake but confused. Reoriented patient to place, time and reason for being in the hospital. Patient is transferred to a room next to the nursing station where a sitter/staff is present in the room at all times. Patient has IV fluid infusing on the right hand IV access.
--- NOTE | 2017-01-04 19:30 | NUR ---
closing notes: pt on bed sleeping. stable. call light within reach. report given at bedside.
[2017-01-04 20:17] VITALS: BP 142/58; PULSE 74; RESP 15; TEMP 98.5; O2SAT 93
--- NOTE | 2017-01-04 21:30 | NUR ---
nursing notes: Patient is resting in bed. Kept siderails up X 3. Bed alarm is on. Patient denies of having pain at this time.
[2017-01-04] MEDS: ATENOLOL 25 MG TABLET(TENORMIN) PO SCH (22:33)
--- NOTE | 2017-01-04 23:30 | NUR ---
nursing rounds: Patient calmly resting in bed. Patient has no respiratory distress.
[2017-01-05] VITALS (7 sets, daily range): BP systolic 117–155; BP diastolic 52–76; PULSE 69–79; RESP 16–20; TEMP 97.8–98.8; O2SAT 91–100
[2017-01-05] MEDS: CARBIDOPA/LEVODOPA 25/250 MG TABLET PO SCH ×5 (00:32→21:17)
[2017-01-05] MEDS: KCL 20 mEq in 0.45% NS 1000 mL 1,000 ML IV SCH ×3 (01:20→17:13)
--- NOTE | 2017-01-05 01:30 | NUR ---
nursing rounds: Patient is asleep. Patient has no shortness of breath.
--- NOTE | 2017-01-05 03:30 | NUR ---
nursing rounds: Patient is asleep in bed. Patient's IV access intact.
--- NOTE | 2017-01-05 05:30 | NUR ---
nursing rounds: Patient calmly resting in bed. Call light within patient's reach.
[2017-01-05] MEDS: LEVOTHYROXINE SODIUM 0.075 MG TABLET PO SCH (06:08)
[2017-01-05 07:02] LABS: BASOPHILS % (AUTO) 0.3 % (0.0-2.0); EOSINOPHILS # (AUTO) 0.2 K/uL (0.0-0.4); EOSINOPHILS % (AUTO) 1.5 % (0.0-4.0); HEMATOCRIT 25.4 % (36-54); HEMOGLOBIN 8.3 g/dL (14.0-18.0); LYMPHOCYTES # (AUTO) 1.6 K/uL (1.0-5.5); LYMPHOCYTES % (AUTO) 12.8 % (20.5-51.5); MEAN CORPUSCULAR HEMOGLOBIN 27 pg (27-31); MEAN CORPUSCULAR HGB CONC 33 % (32-36); MEAN CORPUSCULAR VOLUME 82 fL (79.0-98.0); MONOCYTES # (AUTO) 1.6 K/uL (0.0-1.0); MONOCYTES % (AUTO) 12.6 % (1.7-9.3); NEUTROPHILS # (AUTO) 9.2 K/uL (1.8-7.7); NEUTROPHILS % (AUTO) 72.8 % (40.0-70.0); PLATELET COUNT (AUTO) 382 K/uL (130-430); RED BLOOD CELL COUNT(AUTO) 3.09 MIL/uL (4.2-6.2); WHITE BLOOD COUNT (AUTO) 12.6 K/uL (4.8-10.8)
[2017-01-05 07:19] LABS: ALANINE AMINOTRANSFERASE 23 U/L (12-78); ALBUMIN 2.1 g/dL (3.4-4.8); ANION GAP 10 (5-15); ASPARTATE AMINOTRANSFERASE 25 U/L (10-37); CALCIUM 7.7 mg/dL (8.4-11.0); CHLORIDE 106 mmol/L (98-107); CREATININE 1.17 mg/dL (0.55-1.30); GLUCOSE 89 mg/dL (70-99); POTASSIUM 3.4 mmol/L (3.5-5.1); SODIUM SERUM 140 mmol/L (136-145); TOTAL BILIRUBIN 1.1 mg/dL (0.0-1.0); TOTAL PROTEIN, SERUM 5.2 g/dL (6.4-8.3); UREA NITROGEN, BLOOD 21 mg/dL (8-21)
--- NOTE | 2017-01-05 07:30 | NUR ---
AM ROUNDS: No s/s of distress noted. Will continue to monitor.
--- NOTE | 2017-01-05 08:11 | NUR ---
closing nursing notes: Patient is awake, resting in bed. Patient is in no acute respiratory distress. No episodes of fall and no injuries throughout the disability services coordinator. Provided nursing report to incoming morning shift nurse, RADHA Mcneill, at patient's bedside.
[2017-01-05] MEDS: PANTOPRAZOLE SODIUM 40 MG/VIAL (PROTONIX) IVP SCH ×2 (08:32→21:18)
[2017-01-05] MEDS: POLYETHYLENE GLYCOL 3350, 17 GM/ POWD.PACK PO SCH (08:33)
[2017-01-05] MEDS: ATORVASTATIN 20 MG TABLET PO SCH (08:33)
[2017-01-05] MEDS: BISACODYL 5 MG TABLET.DR (DULCOLAX) PO SCH ×2 (08:34→21:16)
[2017-01-05] MEDS: CHOLECALCIFEROL (VITAMIN D3) 2,000 UNIT TABLET PO SCH (08:34)
[2017-01-05] MEDS: HYDROcodone/ACETAMIN 5-325 MG TAB (NORCO/ VICODIN) PO SCH ×2 (08:34→21:16)
[2017-01-05] MEDS: ISOSORBIDE MONONITRATE 30 MG TAB.ER.24H PO SCH (08:37)
--- NOTE | 2017-01-05 09:20 | NUR ---
MD ROUNDS: Dr. Cook in to see patient. MD made aware of patient's K: 3.4.
[2017-01-05] MEDS ORDERED: ACETAMINOPHEN 650 MG/20.3 ML UDC PO PRN (09:30)
[2017-01-05] MEDS ORDERED: POTASSIUM CHLORIDE 10 MEQ TAB.PRT.SR PO ONE (09:30)
--- NOTE | 2017-01-05 10:13 | NUR ---
PATIENT RESTING: Patient resting quietly. No acute distress noted. Vital signs within normal range.
--- NOTE | 2017-01-05 12:19 | NUR ---
PATIENT RESTING: Patient resting quietly. No acute distress noted. Vital signs within normal range.
--- NOTE | 2017-01-05 14:10 | NUR ---
PATIENT RESTING: Patient resting quietly. No acute distress noted. Vital signs within normal range.
--- NOTE | 2017-01-05 16:07 | NUR ---
PATIENT RESTING: Patient resting quietly. No acute distress noted. Vital signs within normal range.
--- NOTE | 2017-01-05 17:14 | NUR ---
Palliative Consult: for Dr. Crook (Dr. Hudson is marketing production specialist), regarding palliative care, ordered by Dr. Cook, spoke with Frandy.
--- NOTE | 2017-01-05 17:21 | NUR ---
Consult: Dr. Hudson called back. She does not do palliative care.
[2017-01-05] MEDS: MORPHINE 4 MG/ML INJ. SYRINGE IVP PRN (17:47)
--- NOTE | 2017-01-05 18:03 | NUR ---
CLOSING NOTE: All needs met. No change in assessment. Will endorse to NOC shift nurse.
--- NOTE | 2017-01-05 20:00 | NUR ---
ROUNDS PATIENT IN BED, RESTING COMFORTABLY AT THIS TIME, NOT IN DISTRESS, VITALS STABLE. ASSESSMENT DONE AND DOCUMENTED. SEE FLOWSHEET. NEEDS ATTENDED TO. REPOSITIONED AND MADE COMFORTABLE. SAFETY AND FALL PRECAUTION MEASURES IN PLACED. BED IN LOW AND LOCKED POSITION. CALL LIGHT PLACED WITHIN REACH.
--- NOTE | 2017-01-05 21:00 | NUR ---
MEDICATIONS DUE MEDICATIONS GIVEN ORDERED, TOLERATED WELL. WILL CONTINUE TO MONITOR.
[2017-01-05] MEDS: CALCIUM 500 MG/TAB PO SCH (21:16)
[2017-01-05] MEDS: ATENOLOL 25 MG TABLET(TENORMIN) PO SCH (21:18)
--- NOTE | 2017-01-06 | NUR ---
PATIENT RESTING: Patient resting quietly. No acute distress noted. Vital signs within normal range.
[2017-01-06] MEDS: MORPHINE 2 MG/ML INJ. SYRINGE IVP PRN ×2 (03:19→06:46)
[2017-01-06] MEDS: KCL 20 mEq in 0.45% NS 1000 mL 1,000 ML IV SCH (03:23)
--- NOTE | 2017-01-06 04:00 | NUR ---
PATIENT RESTING: Patient resting quietly. No acute distress noted. Vital signs within normal range.
[2017-01-06 04:58] VITALS: BP 151/76; PULSE 67; RESP 18; TEMP 98; O2SAT 99
[2017-01-06] MEDS: LEVOTHYROXINE SODIUM 0.075 MG TABLET PO SCH (06:42)
--- NOTE | 2017-01-06 06:50 | NUR ---
CLOSING NOTES PATIENT RESTING COMFORTABLY IN BED, VITALS STABLE, ALL NEEDS ATTENDED TO. CALL LIGHT PLACED WITH PATIENT.
[2017-01-06 06:59] LABS: BASOPHILS % (AUTO) 0.2 % (0.0-2.0); EOSINOPHILS # (AUTO) 0.5 K/uL (0.0-0.4); EOSINOPHILS % (AUTO) 3.7 % (0.0-4.0); HEMATOCRIT 26.7 % (36-54); HEMOGLOBIN 8.6 g/dL (14.0-18.0); LYMPHOCYTES # (AUTO) 1.3 K/uL (1.0-5.5); LYMPHOCYTES % (AUTO) 9.1 % (20.5-51.5); MEAN CORPUSCULAR HEMOGLOBIN 27 pg (27-31); MEAN CORPUSCULAR HGB CONC 32 % (32-36); MEAN CORPUSCULAR VOLUME 82 fL (79.0-98.0); MONOCYTES # (AUTO) 1.5 K/uL (0.0-1.0); MONOCYTES % (AUTO) 10.1 % (1.7-9.3); NEUTROPHILS # (AUTO) 11.3 K/uL (1.8-7.7); NEUTROPHILS % (AUTO) 76.9 % (40.0-70.0); PLATELET COUNT (AUTO) 354 K/uL (130-430); RED BLOOD CELL COUNT(AUTO) 3.24 MIL/uL (4.2-6.2); RED CELL DISTRIBUTION WIDTH 16.6 % (9.0-15.0); WHITE BLOOD COUNT (AUTO) 14.6 K/uL (4.8-10.8)
--- NOTE | 2017-01-06 07:50 | NUR ---
INITIAL NOTE Received pt in bed, no s/s of distress or sob noted, pt has no facial grimacing noted for pain, pt in stable condition. Pt alert and oriented x2, to name only and place, forgetful at times. Provided pt with reality orientation. Bed at lowest position, call light within reach, will continue to monitor pt for any changes, fall precautions in place. Sitter at bedside for safety.
[2017-01-06 08:02] VITALS: BP 158/67; PULSE 66; RESP 18; TEMP 98.7; O2SAT 98
[2017-01-06] MEDS: CHOLECALCIFEROL (VITAMIN D3) 2,000 UNIT TABLET PO SCH (08:59)
[2017-01-06] MEDS: BISACODYL 5 MG TABLET.DR (DULCOLAX) PO SCH (08:59)
[2017-01-06] MEDS: CALCIUM 500 MG/TAB PO SCH (08:59)
[2017-01-06] MEDS: CARBIDOPA/LEVODOPA 25/250 MG TABLET PO SCH ×2 (08:59→13:14)
[2017-01-06] MEDS: ATORVASTATIN 20 MG TABLET PO SCH (08:59)
[2017-01-06] MEDS: HYDROcodone/ACETAMIN 5-325 MG TAB (NORCO/ VICODIN) PO SCH (09:00)
[2017-01-06] MEDS: ISOSORBIDE MONONITRATE 30 MG TAB.ER.24H PO SCH (09:01)
[2017-01-06] MEDS: POLYETHYLENE GLYCOL 3350, 17 GM/ POWD.PACK PO SCH (09:01)
[2017-01-06] MEDS: PANTOPRAZOLE SODIUM 40 MG/VIAL (PROTONIX) IVP SCH (09:02)
[2017-01-06 09:03] VITALS: BP 118/52; PULSE 77; RESP 18; TEMP 98.4; O2SAT 98
--- NOTE | 2017-01-06 09:26 | NUR ---
Nutrition Update Berny Scale 15 noted. Pt admitted for GI bleed. Diet: mechanical soft BMI: 23.3 kg/m2 RD to follow per nutrition care standards.
--- NOTE | 2017-01-06 10:22 | NUR ---
Rounds Pt in bed, no s/s of distress or sob noted, pt has no c/o pain at this time, pt in stable condition, pt resting comfortably, will continue to monitor pt for any changes.
--- NOTE | 2017-01-06 10:24 | NUR ---
HCP/PA: Called GEETA Cardona made her aware of discharge to SNF Addendum: 01/06/17 at 1444 by Clarita Ford DP Per GEETA Cardona patient accepted [facility] assigned to room 132B RN to report [phone] [facility] [phone] arranged 3pm pick up driver.
[2017-01-06 12:00] VITALS: BP 132/64; PULSE 66; RESP 17; TEMP 98; O2SAT 99
[2017-01-06 14:03] VITALS: BP 118/64; PULSE 68; RESP 18; TEMP 98.6; O2SAT 98
--- NOTE | 2017-01-06 14:24 | NUR ---
REPORT REPORT GIVEN TO PATEL AT [facility] TO PATEL, , PT GOING TO ROOM 132B.
--- NOTE | 2017-01-06 15:17 | NUR ---
PT TRANSFERRED Report given to Marysol Mcallister. Transfer packet with Transfer Orders and Medication Reconciliation form given to EMT with report. Exitcare provided. [facility] ID band removed, replaced with ID band with pt's name and . IV catheter removed, intact and dressing applied, no active bleeding. All belongings sent with patient. Patient left floor via gurney escorted by EMT in no distress. Family notified of transfer.
== END 2017-01-06 15:15 | DRG 374 ==
LOC: SED 11:39 → SMU 13:00 → STU 13:22 → SMU 01-04 16:04
PROVIDERS: ADMIT Internal Medicine Hospice and Palliative Medicine; ATTEND Internal Medicine Hospice and Palliative Medicine
PROC: 0DB68ZX Excision of Stomach, Via Natural or Artificial Opening Endoscopic, Diagnostic (ICD-10-PCS; 2017-01-03)
PROC: 0DB98ZX Excision of Duodenum, Via Natural or Artificial Opening Endoscopic, Diagnostic (ICD-10-PCS; principal; 2017-01-03 08:30)
PROC: 30233N1 Transfusion of Nonautologous Red Blood Cells into Peripheral Vein, Percutaneous Approach (ICD-10-PCS; 2017-01-04)
PROC: 0DJD8ZZ Inspection of Lower Intestinal Tract, Via Natural or Artificial Opening Endoscopic (ICD-10-PCS; 2017-01-05)
DX: C78.4 Secondary malignant neoplasm of small intestine (principal); E43 Unspecified severe protein-calorie malnutrition; K26.4 Chronic or unspecified duodenal ulcer with hemorrhage; K31.7 Polyp of stomach and duodenum; I25.10 Atherosclerotic heart disease of native coronary artery without angina pectoris; I10 Essential (primary) hypertension; C80.1 Malignant (primary) neoplasm, unspecified; Z66 Do not resuscitate; Z51.5 Encounter for palliative care; D64.9 Anemia, unspecified; R19.5 Other fecal abnormalities; G20 Parkinson's disease; K25.9 Gastric ulcer, unspecified as acute or chronic, without hemorrhage or perforation; K57.30 Diverticulosis of large intestine without perforation or abscess without bleeding; E27.9 Disorder of adrenal gland, unspecified; Z98.61 Coronary angioplasty status; Z68.23 Body mass index [BMI] 23.0-23.9, adult
CPT/HCPCS: 36415; 43239; 45378; 71010; 80048; 80053; 80076; 82272; 82977-TC; 83540-TC; 83550-TC; 83605; 83690-TC; 83880; 84484; 85018-TC; 85025; 85610-TC; 85730-TC; 86886; 86900; 86901; 86920; 87040-TC; 87081; 88305; 88312; 88313; 88341; 88342; 93005; 93306; 97116-GP; 99285; C9113; J2175; J2250; J2270; J2405; J3010; J3480; J7030; J7050; P9021; Q9964